=== PATIENT | female | born 1950 | race Caucasian/White ===

== ENCOUNTER → 2017-01-04 10:10 | Outpatient (CLI) | payer BC, MEDICARE | END | disposition home or self-care (01) | LOC: D.NM 10:10 | DX: E21.3 Hyperparathyroidism, unspecified (principal) ==

== ENCOUNTER 2017-12-21 19:23 | Emergency (ER) | payer BC, MEDICARE ==
[~2017-12-21] VITALS: Ht 165.1 cm; Wt 84.5 kg
[2017-12-21 19:34] VITALS: Ht 165.1 cm; Wt 84.5 kg
[2017-12-21] MEDS ORDERED: HYDROCHLOROTH12.5 M1 (19:36)
[2017-12-21] MEDS ORDERED: FLUTICASONE PRO16 GM (19:36)
[2017-12-21] MEDS ORDERED: LIPITOR20 MG (19:36)
[2017-12-21] MEDS ORDERED: EFFEXOR50 MG (19:36)
[2017-12-21] MEDS ORDERED: ACETAMINOPHEN325 MG PO (19:36)
[2017-12-21 20:01] LABS: BASOPHILS 0.1 % (0-2); EOSINOPHILS 0.2 % (0-7); HEMATOCRIT 46.2 % (36.0-48.0); HEMOGLOBIN 16.2 g/dL (12-16); IMMATURE GRANULOCYTES 0.3 % (0-5); LYMPHOCYTES 17.5 % (15-50); MCH 31.3 pg (26.0-34.0); MCHC 35.1 g/dL (31.0-37.0); MCV 89.2 fL (80.0-100.0); MEAN PLATELET VOLUME 10.4 fL (7.4-10.4); MONOCYTES 6.3 % (2-11); NEUTROPHILS 75.6 % (40-80); RBC 5.18 10x6/uL (4.00-5.40); WBC 11.8 10x3/uL (4.8-10.8)
[2017-12-21 20:16] LABS: ALBUMIN 3.7 g/dL (3.4-5.0); ANION GAP 11.2 mmol/L (8-16); BILIRUBIN - TOTAL 0.46 mg/dL (0.2-1.3); CARBON DIOXIDE 30.9 mmol/L (21.0-32.0); POTASSIUM - SERUM 3.1 mmol/L (3.5-5.1); PROTEIN - SERUM 7.7 g/dL (6.4-8.2)
[2017-12-21 20:19] LABS: PLATELET COUNT 347 10x3/uL (130-400)
[2017-12-21 20:20] LABS: APPEARANCE CLEAR (CLEAR); BILIRUBIN NEGATIVE (NEGATIVE); COLOR YELLOW (YELLOW); GLUCOSE NEGATIVE (NEGATIVE); KETONE NEGATIVE (NEGATIVE); NITRITE NEGATIVE (NEGATIVE); PROTEIN TRACE mg/dL (NEGATIVE); UROBILINOGEN NORMAL (NORMAL)
[2017-12-21] MEDS ORDERED: LOMOTIL 2.5-0.1 EAC1 PO (21:27)
[2017-12-21] MEDS ORDERED: ZOFRAN8 MG PO (21:27)
[2017-12-21 21:35] VITALS: BP 126/76
== END 2017-12-21 21:35 | disposition home or self-care (01) ==
LOC: D.ER 19:23
PROVIDERS: Emergency Medicine
DX: R11.2 Nausea with vomiting, unspecified (principal); R10.13 Epigastric pain; E87.6 Hypokalemia; F17.200 Nicotine dependence, unspecified, uncomplicated